=== PATIENT | female | born 1940 | race Caucasian/White ===

== ENCOUNTER 2021-03-05 21:33 | Emergency (ER) | payer MEDICARE ==
[~2021-03-05] VITALS: Ht 167.6 cm; Wt 72.6 kg
[2021-03-05 23:54] LABS: HEMATOCRIT 33.9 % (37.0-47.0); LYMPH # 0.5 10*3/uL (1.3-4.4); LYMPH % 5.5 % (27.0-41.0); MEAN CORPUSCULAR HGB 31.5 pg (27.0-31.0); MEAN CORPUSCULAR HGB CONC 32.2 g/dl (33.0-37.0); MEAN PLATELET VOLUME 10.1 fl (9.6-12.3); MONO # 0.4 10*3/uL (0.1-1.0); MONO % 4.7 % (3.0-9.0); NEUT # 7.3 10*3/uL (2.3-7.9); NEUT % 88.5 % (47.0-73.0); PLATELET COUNT AUTOMATED 200 10*3/uL (130-400); RED BLOOD COUNT 3.46 10*6/uL (4.10-5.10); RED CELL DISTRI WIDTH 13.1 % (0-14.5); WHITE BLOOD COUNT 8.3 10*3/uL (4.8-10.8)
[2021-03-06 00:10] LABS: ALBUMIN 1.8 gm/dl (3.1-4.5); CREATININE 1.26 mg/dL (0.55-1.02); POTASSIUM 5.1 mmol/L (3.5-5.1); TOTAL PROTEIN 5.2 gm/dL (6.4-8.2)
== END 2021-03-06 03:00 ==
LOC: ED 21:33
PROVIDERS: Emergency Medicine
DX: J45.909 Unspecified asthma, uncomplicated (principal)

== ENCOUNTER 2021-03-22 22:43 | Inpatient (IN) | payer MEDICARE ==
[~2021-03-22] VITALS: Ht 165.1 cm; Wt 64.6 kg
[2021-03-22 22:47] VITALS: BP 93/50
[2021-03-23 01:34] VITALS: BP 105/54
[2021-03-23 03:13] LABS: BASO % 0.5 % (0.0-1.0); EOS # 0.1 10*3/uL (0.0-0.4); EOS % 2.1 % (1.0-4.0); HEMATOCRIT 33.2 % (37.0-47.0); LYMPH # 1.3 10*3/uL (1.3-4.4); LYMPH % 29.5 % (27.0-41.0); MEAN CELL VOLUME 100.6 fl (81.0-99.0); MEAN CORPUSCULAR HGB 30.9 pg (27.0-31.0); MEAN CORPUSCULAR HGB CONC 30.7 g/dl (33.0-37.0); MEAN PLATELET VOLUME 9.3 fl (9.6-12.3); MONO # 0.5 10*3/uL (0.1-1.0); MONO % 12.7 % (3.0-9.0); NEUT # 2.2 10*3/uL (2.3-7.9); NEUT % 52.6 % (47.0-73.0); PLATELET COUNT AUTOMATED 157 10*3/uL (130-400); RED CELL DISTRI WIDTH 14.1 % (0-14.5); WHITE BLOOD COUNT 4.2 10*3/uL (4.8-10.8)
[2021-03-23 03:16] VITALS: BP 110/73
[2021-03-23] MEDS ORDERED: ASPIRIN ADULT L81 M2 PO (03:25)
[2021-03-23] MEDS ORDERED: COREG6.25 MG PO (03:26)
[2021-03-23] MEDS ORDERED: LIPITOR40 MG PO (03:26)
[2021-03-23] MEDS ORDERED: PEPCID AC20 MG PO (03:27)
[2021-03-23 03:28] LABS: ALBUMIN 1.8 gm/dl (3.1-4.5); ALKALINE PHOSPHATASE 116 U/L (45-117); BUN 19 mg/dl (7-24); CHLORIDE 100 mmol/L (98-107); CREATININE 0.82 mg/dL (0.55-1.02); POTASSIUM 4.3 mmol/L (3.5-5.1); SGOT/AST 17 IU/L (3-35); SGPT/ALT 21 U/L (12-78); SODIUM 140 mmol/L (136-145); TOTAL PROTEIN 5.6 gm/dL (6.4-8.2)
[2021-03-23] MEDS ORDERED: ZOLOFT25 MG PO (03:28)
[2021-03-23 03:30] LABS: FREE T4 1.25 ng/dl (0.76-1.46)
[2021-03-23 03:34] LABS: THYROID STIM HORMONE (HS) 0.072 uIU/ml (0.358-4.75)
[2021-03-23 05:06] VITALS: BP 114/62
[2021-03-23 06:04] VITALS: BP 93/48
[2021-03-23 06:38] VITALS: BP 107/62
[2021-03-23 20:00] VITALS: BP 97/49
[2021-03-24 04:00] VITALS: BP 97/49
[2021-03-24 04:25] LABS: HEMATOCRIT 32.9 % (37.0-47.0); LYMPH # 1.1 10*3/uL (1.3-4.4); MEAN CELL VOLUME 101.5 fl (81.0-99.0); MEAN CORPUSCULAR HGB 30.9 pg (27.0-31.0); MEAN CORPUSCULAR HGB CONC 30.4 g/dl (33.0-37.0); MEAN PLATELET VOLUME 9.8 fl (9.6-12.3); MONO # 0.4 10*3/uL (0.1-1.0); MONO % 6.2 % (3.0-9.0); NEUT % 75.8 % (47.0-73.0); PLATELET COUNT AUTOMATED 183 10*3/uL (130-400); RED BLOOD COUNT 3.24 10*6/uL (4.10-5.10); RED CELL DISTRI WIDTH 13.9 % (0-14.5); WHITE BLOOD COUNT 6.6 10*3/uL (4.8-10.8)
[2021-03-24 04:44] LABS: ALBUMIN 1.9 gm/dl (3.1-4.5); ALKALINE PHOSPHATASE 123 U/L (45-117); BUN 28 mg/dl (7-24); CHLORIDE 100 mmol/L (98-107); CREATININE 0.95 mg/dL (0.55-1.02); POTASSIUM 4.8 mmol/L (3.5-5.1); SGOT/AST 16 IU/L (3-35); SGPT/ALT 18 U/L (12-78); SODIUM 144 mmol/L (136-145); TOTAL PROTEIN 5.9 gm/dL (6.4-8.2)
[2021-03-24 08:00] VITALS: BP 102/62
[2021-03-24 10:30] VITALS: BP 98/56
[2021-03-24 15:01] VITALS: BP 100/50
[2021-03-24 15:30] VITALS: BP 110/62
[2021-03-24 20:00] VITALS: BP 122/72
[2021-03-25] VITALS: BP 122/72
[2021-03-25 08:00] VITALS: BP 103/64
[2021-03-25 08:14] LABS: HEMATOCRIT 32.6 % (37.0-47.0); MEAN CELL VOLUME 104.5 fl (81.0-99.0); MEAN CORPUSCULAR HGB 31.4 pg (27.0-31.0); MEAN CORPUSCULAR HGB CONC 30.1 g/dl (33.0-37.0); MEAN PLATELET VOLUME 9.5 fl (9.6-12.3); PLATELET COUNT AUTOMATED 220 10*3/uL (130-400); RED BLOOD COUNT 3.12 10*6/uL (4.10-5.10); RED CELL DISTRI WIDTH 13.8 % (0-14.5); WHITE BLOOD COUNT 9.4 10*3/uL (4.8-10.8)
[2021-03-25 08:32] LABS: ALBUMIN 1.8 gm/dl (3.1-4.5); ALKALINE PHOSPHATASE 115 U/L (45-117); BUN 28 mg/dl (7-24); CHLORIDE 102 mmol/L (98-107); CREATININE 0.88 mg/dL (0.55-1.02); SGOT/AST 16 IU/L (3-35); SGPT/ALT 20 U/L (12-78); SODIUM 139 mmol/L (136-145); TOTAL PROTEIN 5.8 gm/dL (6.4-8.2)
[2021-03-25 08:51] LABS: PLATELET SUFFICIENCY NORMAL (NORMAL); TOTAL CELLS COUNTED 100 #CELLS
[2021-03-25 12:00] VITALS: BP 109/61
[2021-03-25 16:00] VITALS: BP 111/54
[2021-03-25 20:00] VITALS: BP 119/74
[2021-03-26] VITALS: BP 112/68
[2021-03-26 08:00] VITALS: BP 113/69
[2021-03-26 10:34] LABS: BUN 34 mg/dl (7-24); CHLORIDE 111 mmol/L (98-107); CREATININE 0.91 mg/dL (0.55-1.02); POTASSIUM 4.2 mmol/L (3.5-5.1); SODIUM 148 mmol/L (136-145)
[2021-03-26 12:00] VITALS: BP 115/74
[2021-03-26] MEDS ORDERED: MUCUS RELIEF600 MG PO (14:08)
[2021-03-26] MEDS ORDERED: PREDNISONE10 MG PO (14:08)
[2021-03-26] MEDS ORDERED: ZITHROMAX250 MG PO (14:08)
[2021-03-26 16:58] VITALS: BP 128/76
== END 2021-03-26 19:00 | DRG 871 ==
LOC: ED 22:43 → 4E 03-23 01:38 → EDHOLD 03-23 01:38 → 4E 03-24 14:30
PROVIDERS: Internal Medicine; ADMIT Internal Medicine; ATTEND Internal Medicine
DX: A41.9 Sepsis, unspecified organism (principal); J96.01 Acute respiratory failure with hypoxia; J18.9 Pneumonia, unspecified organism; E43 Unspecified severe protein-calorie malnutrition; J44.1 Chronic obstructive pulmonary disease with (acute) exacerbation; F33.9 Major depressive disorder, recurrent, unspecified; J44.0 Chronic obstructive pulmonary disease with (acute) lower respiratory infection; I25.10 Atherosclerotic heart disease of native coronary artery without angina pectoris; K21.9 Gastro-esophageal reflux disease without esophagitis; Z20.822 Contact with and (suspected) exposure to COVID-19; R65.20 Severe sepsis without septic shock; E78.2 Mixed hyperlipidemia; I73.9 Peripheral vascular disease, unspecified; Z99.81 Dependence on supplemental oxygen; Z79.82 Long term (current) use of aspirin; Z88.6 Allergy status to analgesic agent; Z68.23 Body mass index [BMI] 23.0-23.9, adult